=== PATIENT | male | born 2005 ===

== ENCOUNTER 2024-04-26 15:10 | Outpatient (CLI) | payer BC, SELFPAY | END 2024-04-26 15:11 | disposition home or self-care (01) | PROVIDERS: PCP Physician Assistant Medical; Visit Provider Physician Assistant Medical | DX: M25.541 Pain in joints of right hand (principal); M25.542 Pain in joints of left hand | CPT/HCPCS: 80053; 86038; 86200; 86431 ==

== ENCOUNTER 2024-09-12 15:00 | Outpatient (CLI) | payer BC, SELFPAY ==
[2024-09-12 21:39] LABS: Basophils Absolute Auto 0.04 K/uL (0.00-0.30); Basophils Percent Auto 0.7 % (0.0-3.0); Eosinophils Percent Auto 1.9 % (0.0-7.0); Hematocrit 47.2 % (37.0-53.0); Hemoglobin* 16.4 gm/dL (13.5-17.5); Immature Granulocytes Abs Auto 0.04 K/uL (0.00-0.30); Immature Granulocytes Pct Auto 0.7 %; Lymphocytes Absolute Auto 1.82 K/uL (0.90-2.90); Mean Corpuscular HGB Conc 35 gm/dL (32-36); Mean Corpuscular Hemoglobin 31 pg (26-34); Mean Corpuscular Volume 89 fL (80-100); Monocytes Percent Auto 4.7 % (0.0-11.0); Platelet Count* 220 K/uL (140-440); RDW Coefficient of Variation % 12.3 % (11.5-15.5); Red Blood Count 5.31 m/uL (4.30-5.90); White Blood Count* 5.35 K/uL (4.50-11.00)
[2024-09-12 21:48] LABS: Albumin* 4.8 g/dL (3.3-5.0)
[2024-09-12 21:50] LABS: Hemoglobin A1C* 5.2 % (0-5.6)
[2024-09-12 21:51] LABS: Alanine Aminotransferase* 32 U/L (4-50); Alkaline Phosphatase* 55 U/L (40-150); Aspartate Amino Transferase* 31 U/L (12-35); Bilirubin Direct* 0.2 mg/dL (0.0-0.5); Bilirubin Total* 0.6 mg/dL (0.1-1.5); Cholesterol* 149 mg/dL (90-199); Total Protein* 7.4 g/dL (6.0-8.3); Triglycerides* 173 mg/dL (40-149)
[2024-09-12 21:52] LABS: Glucose* 135 mg/dL (60-115); HDL Cholesterol* 54 mg/dL (>=40); LDL Cholesterol Calculated 60 mg/dL (<100)
[2024-09-12 22:02] LABS: Slide Review Reflex No
[2024-09-12 22:12] LABS: Vitamin D 25 Hydroxy* 35 ng/mL (30-80)
[2024-09-12 22:24] LABS: Thyroid Stimulating Hormone* 0.345 uIU/mL (0.270-4.20)
[2024-09-12 22:42] LABS: Vitamin B12* 554 pg/mL (243-894)
[2024-09-12 23:08] LABS: Amylase* 59 U/L (18-89)
[2024-09-14 06:06] LABS: Thyroid Peroxidase (TPO) Ab <0.3 IU/mL (0.0-9.0)
[2024-09-14 15:19] LABS: Valproic Acid, Free 8 ug/mL (7-23); Valproic Acid, Percent Free 11 % (5-18); Valproic Acid, Total 67 ug/mL (50-125)
== END 2024-09-12 15:01 | disposition home or self-care (01) ==
LOC: NPINS 09-13 11:30
PROVIDERS: PCP Physician Assistant Medical; Visit Provider Nurse Practitioner Psychiatric/Mental Health
DX: F31.81 Bipolar II disorder (principal); F41.1 Generalized anxiety disorder; Z79.899 Other long term (current) drug therapy; Z13.6 Encounter for screening for cardiovascular disorders; Z13.1 Encounter for screening for diabetes mellitus; Z13.21 Encounter for screening for nutritional disorder
CPT/HCPCS: 80061; 80076; 80164; 80165; 82150; 82306; 82607; 82947; 83036; 84439; 84443; 85025; 86376